=== PATIENT | female | born 1990 | race Caucasian/White ===

== ENCOUNTER 2017-01-05 12:46 | Emergency (ER) | payer OTHER ==
[~2017-01-05] VITALS: Ht 154.9 cm; Wt 71.5 kg
[~2017-01-05 12:46] MED LIST: AMO500 PO; IBUP-1542 PO
[2017-01-05 12:50] VITALS: Ht 154.9 cm; Wt 71.5 kg
[2017-01-05] MEDS ORDERED: IBUP-1542 PO (14:43)
[2017-01-05] MEDS ORDERED: ACET500C5 PO (14:43)
[2017-01-05] MEDS ORDERED: ONDA4TAB8 PO (14:44)
[2017-01-05] MEDS ORDERED: CETI10CA PO (14:44)
[2017-01-05] MEDS ORDERED: UDROBDM PO (14:44)
[2017-01-05] MEDS ORDERED: FLUT9.9S NASAL (14:45)
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
== END 2017-01-05 14:59 | disposition home or self-care (01) ==
LOC: FTE 12:46
DX: J02.9 Acute pharyngitis, unspecified (principal); R11.10 Vomiting, unspecified
CPT/HCPCS: 99283

== ENCOUNTER 2017-02-15 18:59 | Emergency (ER) | payer OTHER ==
[~2017-02-15] VITALS: Ht 154.9 cm; Wt 69.5 kg
[~2017-02-15 18:59] MED LIST changes: +ACET500C5 PO; +CETI10CA PO; +FLUT9.9S NASAL; +ONDA4TAB8 PO; +UDROBDM PO
[2017-02-15 19:10] VITALS: Ht 154.9 cm; Wt 69.5 kg
[2017-02-16] MEDS ORDERED: MULTI PO (01:48)
[2017-02-16 03:50] VITALS: BP 118/70; PULSE 78; RESP 18; TEMP 98.2
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
== END 2017-02-16 03:50 | disposition home or self-care (01) ==
LOC: E/R 18:59
DX: T74.21XA Adult sexual abuse, confirmed, initial encounter (principal)
CPT/HCPCS: 99282

== ENCOUNTER 2018-02-17 07:17 | Emergency (ER) | END 2018-02-17 11:03 | disposition home or self-care (01) ==

== ENCOUNTER 2019-06-10 13:39 | Emergency (ER) | payer SELFPAY ==
[~2019-06-10 13:39] MED LIST changes: -ACET500C5 PO; -AMO500 PO; -CETI10CA PO; -FLUT9.9S NASAL; +HYDR-4011 PO; -IBUP-1542 PO; +MULTI PO; -ONDA4TAB8 PO; -UDROBDM PO
== END 2019-06-10 14:06 | disposition left against medical advice (07) ==
LOC: E/R 13:39
DX: Z53.21 Procedure and treatment not carried out due to patient leaving prior to being seen by health care provider (principal)